=== PATIENT | female | born 1995 | race Asian ===

== ENCOUNTER 2018-03-30 16:18 | Emergency (ER) | payer OTHER ==
[2018-03-30] MEDS ORDERED: NS 0.9% 1000 ML* 1,000 ML IV ONE (16:37)
--- NOTE | 2018-03-30 17:12 | ED ---
Substance Abuse/Use - HPI Summary HPI Summary: Patient [facility] from [place]. She was seen at [facility] for alcohol intoxication and given 750ml fluids. Her BP continued to drop, noting a 70/40 per EMS and therefore was transferred here to ED. She is alert and oriented x 3, inconsolably crying. Denies allergies. Denies health problems. Denies any drug use, but endorses a small amount of ETOH. - History Of Current Complaint Chief Complaint: EDSubstanceAbuse Stated Complaint: INTOXICATION Time Seen by Provider: 03/30/18 16:36 Hx Obtained From: Patient ?: No Onset/Duration of Drug/ETOH Abuse: Hours Ingestion History: Type/Name Of Drug Overdose Characteristics: Oral Timing Of Abuse: Binge Use Severity Initially: Moderate Severity Currently: Moderate Character: Stuporous Aggravating Factor(s): Nothing Alleviating Factor(s): Nothing Associated Signs And Symptoms: Intentional Ingestion - Risk Factor(s) Completed Suicide Risk Factors: Negative - Allergies/Home Medications Allergies/Adverse Reactions: Allergies Allergy/AdvReac Type Severity Reaction Status Date / Time No Known Allergies Allergy Verified 07/27/15 13:45 PMH/Surg Hx/FS Hx/Imm Hx Previously Healthy: Yes - Immunization History Hx Pertussis Vaccination: No Immunizations Up to Date: Yes Infectious Disease History: No Infectious Disease History: Denies: History Other Infectious Disease, Traveled Outside the [place] in Last 30 Days - Social History Occupation: Unemployed, Student Lives: Dormitory/Roommates Alcohol Use: Rare Hx Substance Use: No Substance Use Type: Reports: None Smoking Status (MU): Never Smoked Tobacco Review of Systems Constitutional: Negative Negative: Fever, Chills, Fatigue, Skin Diaphoresis Negative: Epistaxis, Dental Pain Negative: Palpitations, Chest Pain Negative: Shortness Of Breath, Cough Genitourinary: Negative Positive: no symptoms reported, see HPI Skin: Negative Positive: Slurred Speech Positive: Anxious - crying inconsolably All Other Systems Reviewed And Are Negative: Yes Physical Exam Triage Information Reviewed: Yes Vital Signs On Initial Exam: Initial Vitals Temp Pulse Resp BP Pulse Ox 97.1 F 79 16 107/76 99 03/30/18 16:21 03/30/18 16:21 03/30/18 16:21 03/30/18 16:21 03/30/18 16:21 Vital Signs Reviewed: Yes Appearance: Positive: Well-Nourished, Ill-Appearing Skin: Positive: Skin Color Reflects Adequate Perfusion Eyes: Positive: EOMI, [place] Neck: Positive: Nontender, No Lymphadenopathy Respiratory/Lung Sounds: Positive: Clear to Auscultation, Breath Sounds Present Cardiovascular: Positive: RRR, Pulses are Symmetrical in both Upper and Lower Extremities Musculoskeletal: Positive: Strength/ROM Intact Neurological: Positive: Slurred Speech Psychiatric: Positive: Anxious AVPU Assessment: Alert Diagnostics - Vital Signs Vital Signs Temp Pulse Resp BP Pulse Ox 03/30/18 16:21 97.1 F 79 16 107/76 99 - Laboratory Lab Statement: Any lab studies that have been ordered have been reviewed, and results considered in the medical decision making process. Course/Dx - Course Course Of Treatment: Patient is given 2L fluids d/t low bp. BP rises to 110/ 80. She is ambulating well to restroom x 2. Eating and drinking OK. Reglan with effect and denies any nausea. [facility] to transport patient back to campus. ETOH 215. - Diagnoses Differential Diagnosis/HQI/PQRI: Positive: Alcohol Abuse Provider Diagnoses: Alcohol intoxication Discharge - Sign-Out/Discharge Documenting (check all that apply): Discharge/Admit/Transfer - Discharge Plan Condition: Stable Disposition: HOME Patient Education Materials: Alcohol Intoxication (ED) Referrals: [facility] - Alex NEVAREZ [Primary Care Provider] - Additional Instructions: Drink plenty of fluids - Billing Disposition and Condition Condition: STABLE Disposition: HOME
[2018-03-30 19:10] VITALS: BP 118/65
== END 2018-03-30 19:00 | disposition home or self-care (01) ==
LOC: ED 16:18
DX: F10.129 Alcohol abuse with intoxication, unspecified (principal)
CPT/HCPCS: 36415; 80320; 96360; 96361; 99282; G0480